=== PATIENT | female | born 1970 | race Caucasian/White ===

== ENCOUNTER → 2018-09-24 | Day surgery (SDC) | payer OTHER ==
[~2018-09-24] MED LIST: LIDOCAINE 1% 300 MG/30 ML SDV SC ONE; LIDOCAINE 1% 5 ML SDV ONE
--- NOTE | 2018-09-24 15:46 | PDCTREPORT ---
Cardiothoracic Procedure Rpt Cardiothoracic Procedure Report: Procedure: Implantation of a loop recorder. After obtaining informed consent patient was brought to the [facility]. Left anterior chest was sterilely prepped and draped. Position of the loop was confirmed with the [employer] representative. This was a bit more medial than usual in light of sternotomy, breast tissue. A site was anesthetized with 2% xylocaine. Stab wound was made. Using the [employer] loop recorder insertion tool device was inserted under the skin. 3 ramon were used to close the skin. Pressure dressings applied the patient is taken to recovery for continued care. Conclusions successful implantation of a [employer] loop recorder. Confirm Rx. [id number] Patient Problems: Problems Problem Status Onset Aortic stenosis due to bicuspid aortic valve Chronic Ascending aorta enlargement Chronic CAD (coronary artery disease), [place] coronary artery Acute S/P aortic valve replacement with bioprosthetic valve Acute S/P ascending aortic replacement Acute S/P CABG x 2 Acute Acute blood loss anemia Acute History of palpitations Chronic Paroxysmal atrial fibrillation Acute
--- NOTE | 2018-09-24 15:47 | PDHPUP ---
History & Physical Update H&P update statement: This history and physical update is based on an assessment of the patient which was completed after admission or registration (within 24 hours), but prior to the surgery/procedure. H&P update: H&P reviewed & patient examined, no change in patient's condition since H&P completed
== END | disposition home or self-care (01) ==
LOC: FCATH 13:24
PROVIDERS: ATTEND Internal Medicine Interventional Cardiology
PROC: 0JH602Z Insertion of Monitoring Device into Chest Subcutaneous Tissue and Fascia, Open Approach (ICD-10-PCS; principal; 2018-09-24)
DX: R55 Syncope and collapse (principal); I47.1 Supraventricular tachycardia; E78.5 Hyperlipidemia, unspecified; Z95.1 Presence of aortocoronary bypass graft; Z95.2 Presence of prosthetic heart valve
CPT/HCPCS: C1764